=== PATIENT | female | born 1985 | race Caucasian/White ===

== ENCOUNTER 2016-02-07 09:18 | Emergency (ER) | payer OTHER ==
[~2016-02-07] VITALS: Ht 160 cm; Wt 89.0 kg
[~2016-02-07 09:18] MED LIST: ATARAX,VISTARIL50 MG PO; ATIVAN0.5 MG PO; ATIVAN1 MG PO; BACTRIM,SEPT1 TABLET PO; CIPRO500 MG PO; DEPO-PROVER150 MG/ML IM; EFFEXOR37.5 MG PO; ENDOCET 10-3251 EACH PO; EXCEDRIN MIGRA1 EACH PO; FIORICET 50-301 EACH PO; KLONOPIN0.5 M1 PO; LEVAQUIN500 MG PO; LEVOFLOXACIN500 MG; MACROBID100 MG PO; MECLIZINE HCL25 MG PO; MIRALAX255 GM PO; MOTRIN IB200 MG PO; MOTRIN800 MG PO; MUCINEX D ER T1 EACH PO; NAPROSYN500 MG PO; NAPROXEN500 MG PO; NASONEX17 GM BOTH NARES; NOHOMEMEDS; PRENATAL1 EACH PO; ZITHROMAX Z-PA250 MG PO; ZOFRAN ODT4 MG PO; ZOFRAN4 MG PO
[2016-02-07 09:40] VITALS: BP 113/78
== END 2016-02-07 10:55 | disposition left against medical advice (07) ==
LOC: EME 09:18
DX: R05 Cough (principal); Z53.21 Procedure and treatment not carried out due to patient leaving prior to being seen by health care provider
CPT/HCPCS: 71020; 93005

== ENCOUNTER 2016-02-21 18:00 | Emergency (ER) | payer OTHER ==
[~2016-02-21] VITALS: Ht 160 cm; Wt 91.8 kg
[2016-02-21 19:22] LABS: BILIRUBIN NEGATIVE; BLOOD NEGATIVE; COLOR YELLOW ((YELLOW)); GLUCOSE (STRIP) NEGATIVE; KETONES NEGATIVE; LEUKOCYTES NEGATIVE; NITRITE NEGATIVE; PH, URINE 7.5 (5-8); PROTEIN (STRIP) NEGATIVE; SPECIFIC GRAVITY 1.015 (1.000-1.030)
[2016-02-21 19:26] LABS: ADD MIUA? NO
[2016-02-21] MEDS ORDERED: MUCINEX D ER T1 EACH PO (20:01)
[2016-02-21] MEDS ORDERED: FLONASE16 G1 BOTH NARES (20:01)
[2016-02-21] MEDS ORDERED: CLINDAMYCIN HC300 MG PO (20:01)
[2016-02-21 20:07] LABS: POINT-OF-CARE METER ID UU13113800
[2016-02-21 20:32] VITALS: BP 109/82
== END 2016-02-21 20:33 | disposition home or self-care (01) ==
LOC: EME 18:00
PROVIDERS: Physician Assistant
DX: H65.02 Acute serous otitis media, left ear (principal); K02.9 Dental caries, unspecified; F17.200 Nicotine dependence, unspecified, uncomplicated
CPT/HCPCS: 81003; 82948; 99281; 99284

== ENCOUNTER 2016-02-25 10:51 | Emergency (ER) | payer OTHER ==
[~2016-02-25] VITALS: Ht 160 cm; Wt 89.5 kg
[~2016-02-25 10:51] MED LIST changes: +CLINDAMYCIN HC300 MG PO; +FLONASE16 G1 BOTH NARES
[2016-02-25] MEDS ORDERED: DEPO-PROVER400 MG/ML IM (12:53)
[2016-02-25 13:49] LABS: ADD MIUA? NO; BILIRUBIN NEGATIVE; BLOOD NEGATIVE; COLOR YELLOW ((YELLOW)); GLUCOSE (STRIP) NEGATIVE; KETONES 15; LEUKOCYTES NEGATIVE; NITRITE NEGATIVE; PH, URINE 6.5 (5-8); PROTEIN (STRIP) NEGATIVE; SPECIFIC GRAVITY 1.009 (1.000-1.030); UCUL ADDED? NO; UROBILINOGEN 0.2 MG/DL (0.2-1.0)
[2016-02-25 13:55] LABS: HEMATOCRIT 42.8 % (36.0-46.0); MCH 30.1 PG (29.0-34.0); MCHC 34.1 G/DL (30.0-36.0); MCV 88.2 FL (83-99); MEAN PLAT.VOLUME 11.5 uM^3 (9.5-12.4); PLATELET COUNT 244 K/uL (156-360); RBC DIS.WIDTH-CV 14.1 % (11.8-14.6); RED BLOOD COUNT 4.85 M/uL (3.80-5.20); WHITE BLOOD COUNT 11.7 K/uL (4.1-10.2)
[2016-02-25 14:08] LABS: CHLORIDE 104 mEq/L (99-109); POTASSIUM 4.2 mEq/L (3.7-5.4); SODIUM 136 mEq/L (136-147)
[2016-02-25 14:10] LABS: GLUCOSE 93 mg/dL (70-99)
[2016-02-25 14:11] LABS: ANION GAP 11 MEQ/L (2-14)
[2016-02-25 14:14] LABS: GFR ESTIMATE (CALCULATED) > 59 mL/min/; UREA NITROGEN (BUN) 7 mg/dL (9-23)
[2016-02-25 14:24] LABS: QUANTITATIVE HCG < 4.0 MIU/ML
[2016-02-25] MEDS ORDERED: AMOXICILLIN500 M1 PO (15:07)
[2016-02-25 15:15] VITALS: BP 116/78
== END 2016-02-25 15:16 | disposition home or self-care (01) ==
LOC: EME 10:51
PROVIDERS: Physician Assistant
DX: K05.10 Chronic gingivitis, plaque induced (principal); E86.0 Dehydration; Z88.0 Allergy status to penicillin
CPT/HCPCS: 80048; 81003; 84443; 84702; 85027; 99281; 99284

== ENCOUNTER 2016-06-18 06:28 | Emergency (ER) | payer OTHER ==
[~2016-06-18] VITALS: Ht 160 cm; Wt 93.6 kg
[~2016-06-18 06:28] MED LIST changes: +AMOXICILLIN500 M1 PO; +DEPO-PROVER400 MG/ML IM
[2016-06-18 06:30] VITALS: BP 119/80
[2016-06-18] MEDS ORDERED: MOTRIN800 MG PO (06:41)
[2016-06-18] MEDS ORDERED: CLEOCIN300 MG PO (06:41)
[2016-06-18] MEDS ORDERED: BACTRIM,SEPT1 TABLET PO (18:56)
== END 2016-06-18 06:55 | disposition home or self-care (01) ==
LOC: EME 06:28
DX: I88.9 Nonspecific lymphadenitis, unspecified (principal); Z88.0 Allergy status to penicillin
CPT/HCPCS: 99281; 99284

== ENCOUNTER 2016-06-18 16:05 | Emergency (ER) | payer OTHER ==
[~2016-06-18] VITALS: Ht 160 cm; Wt 93.4 kg
[~2016-06-18 16:05] MED LIST changes: +CLEOCIN300 MG PO
[2016-06-18 17:04] LABS: HEMATOCRIT 42.5 % (36.0-46.0); MCH 29.3 PG (29.0-34.0); MCHC 33.2 G/DL (30.0-36.0); MCV 88.4 FL (83-99); MEAN PLAT.VOLUME 10.8 uM^3 (9.5-12.4); PLATELET COUNT 250 K/uL (156-360); RBC DIS.WIDTH-CV 13.2 % (11.8-14.6); RBC DIS.WIDTH-SD 43.4 % (39-53); RED BLOOD COUNT 4.81 M/uL (3.80-5.20); WHITE BLOOD COUNT 15.4 K/uL (4.1-10.2)
[2016-06-18 17:14] LABS: CHLORIDE 109 mEq/L (99-109)
[2016-06-18 17:15] LABS: POTASSIUM 4.1 mEq/L (3.7-5.4); SODIUM 140 mEq/L (136-147)
[2016-06-18 17:17] LABS: GLUCOSE 95 mg/dL (70-99)
[2016-06-18 17:18] LABS: ANION GAP 10 MEQ/L (2-14)
[2016-06-18 17:19] LABS: TOTAL BILIRUBIN 0.3 mg/dL (0.0-1.0)
[2016-06-18 17:20] LABS: ALKALINE PHOSPHATASE 94 IU/L (3-129); GFR ESTIMATE (CALCULATED) > 59 mL/min/
[2016-06-18 17:22] LABS: UREA NITROGEN (BUN) 11 mg/dL (9-23)
[2016-06-18 17:26] LABS: ADD MIUA? NO; BILIRUBIN NEGATIVE; BLOOD NEGATIVE; COLOR STRAW ((YELLOW)); GLUCOSE (STRIP) NEGATIVE; KETONES NEGATIVE; LEUKOCYTES NEGATIVE; NITRITE NEGATIVE; PROTEIN (STRIP) NEGATIVE; SPECIFIC GRAVITY 1.006 (1.000-1.030); UCUL ADDED? NO; UROBILINOGEN 0.2 MG/DL (0.2-1.0)
[2016-06-18 17:31] LABS: QUANTITATIVE HCG < 4.0 MIU/ML
[2016-06-18] MEDS ORDERED: BACTRIM,SEPT1 TABLET PO (18:56)
[2016-06-18 19:06] VITALS: BP 123/90
== END 2016-06-18 19:10 | disposition home or self-care (01) ==
LOC: EME 16:05 → RME 16:05
DX: R10.31 Right lower quadrant pain (principal); R59.1 Generalized enlarged lymph nodes; D72.829 Elevated white blood cell count, unspecified
CPT/HCPCS: 80053; 81003; 84702; 85027; 99281; 99284; J7040

== ENCOUNTER 2016-07-07 16:14 | Emergency (ER) | payer OTHER ==
[~2016-07-07] VITALS: Ht 160 cm; Wt 93.1 kg
[2016-07-07] MEDS ORDERED: AUGMENTIN875 MG PO (17:27)
[2016-07-07] MEDS ORDERED: MOTRIN600 MG PO (17:28)
[2016-07-07 17:37] VITALS: BP 125/89
== END 2016-07-07 17:39 | disposition home or self-care (01) ==
LOC: EME 16:14
DX: R51 Headache (principal); L03.316 Cellulitis of umbilicus; K08.499 Partial loss of teeth due to other specified cause, unspecified class; F17.200 Nicotine dependence, unspecified, uncomplicated; Z88.0 Allergy status to penicillin
CPT/HCPCS: 99281; 99283

== ENCOUNTER 2016-09-29 16:24 | Emergency (ER) | payer OTHER ==
[~2016-09-29] VITALS: Ht 160 cm; Wt 94.3 kg
[~2016-09-29 16:24] MED LIST changes: +AUGMENTIN875 MG PO; +MOTRIN600 MG PO
[2016-09-29 18:10] LABS: HEMATOCRIT 41.5 % (36.0-46.0); MCH 29.7 PG (29.0-34.0); MCV 87.4 FL (83-99); MEAN PLAT.VOLUME 10.5 uM^3 (9.5-12.4); PLATELET COUNT 243 K/uL (156-360); RBC DIS.WIDTH-CV 13.2 % (11.8-14.6); RBC DIS.WIDTH-SD 42.3 % (39-53); RED BLOOD COUNT 4.75 M/uL (3.80-5.20); WHITE BLOOD COUNT 15.4 K/uL (4.1-10.2)
[2016-09-29 18:19] LABS: CHLORIDE 107 mEq/L (99-109); POTASSIUM 4.3 mEq/L (3.7-5.4); SODIUM 139 mEq/L (136-147)
[2016-09-29 18:21] LABS: GLUCOSE 93 mg/dL (70-99)
[2016-09-29 18:22] LABS: ANION GAP 10 MEQ/L (2-14)
[2016-09-29 18:25] LABS: GFR ESTIMATE (CALCULATED) > 59 mL/min/
[2016-09-29 18:26] LABS: UREA NITROGEN (BUN) 9 mg/dL (9-23)
[2016-09-29 18:33] LABS: TROP-I INTERPRETATION NEGATIVE; TROPONIN-I < 0.01 ng/mL (0.0-0.30)
[2016-09-29 19:02] VITALS: BP 135/84
== END 2016-09-29 19:14 | disposition home or self-care (01) ==
LOC: EME 16:24
PROVIDERS: Emergency Medicine
DX: R07.9 Chest pain, unspecified (principal); R00.0 Tachycardia, unspecified; F17.200 Nicotine dependence, unspecified, uncomplicated
CPT/HCPCS: 71020; 80048; 84484; 85027; 93005; 99281; 99284

== ENCOUNTER 2016-10-13 14:29 | Emergency (ER) | payer OTHER ==
[~2016-10-13] VITALS: Ht 160 cm; Wt 92.0 kg
[2016-10-13 14:51] VITALS: BP 115/84
[2016-10-13] MEDS ORDERED: INDOCIN50 MG PO (17:11)
[2016-10-13] MEDS ORDERED: NORCO 7.5/321 TABLET PO (17:11)
== END 2016-10-13 18:15 | disposition home or self-care (01) ==
LOC: EME 14:29
PROC: 2W3RX1Z Immobilization of Left Lower Leg using Splint (ICD-10-PCS; principal; 2016-10-13)
DX: S82.62XA Displaced fracture of lateral malleolus of left fibula, initial encounter for closed fracture (principal); S82.832A Other fracture of upper and lower end of left fibula, initial encounter for closed fracture; X50.1XXA Overexertion from prolonged static or awkward postures, initial encounter; W18.42XA Slipping, tripping and stumbling without falling due to stepping into hole or opening, initial encounter; Y92.007 Garden or yard of unspecified non-institutional (private) residence as the place of occurrence of the external cause; F17.200 Nicotine dependence, unspecified, uncomplicated
CPT/HCPCS: 73610; 99281; 99284

== ENCOUNTER 2016-10-20 20:42 | Emergency (ER) | payer OTHER ==
[~2016-10-20] VITALS: Ht 162.6 cm; Wt 94.9 kg
[~2016-10-20 20:42] MED LIST changes: +INDOCIN50 MG PO; +NORCO 7.5/321 TABLET PO
[2016-10-20 22:25] VITALS: BP 129/87
== END 2016-10-20 22:26 | disposition home or self-care (01) ==
LOC: EME 20:42
DX: R20.2 Paresthesia of skin (principal); S82.402D Unspecified fracture of shaft of left fibula, subsequent encounter for closed fracture with routine healing; X58.XXXD Exposure to other specified factors, subsequent encounter; M79.89 Other specified soft tissue disorders; F17.200 Nicotine dependence, unspecified, uncomplicated
CPT/HCPCS: 99281; 99283

== ENCOUNTER 2016-11-09 08:31 | Emergency (ER) | payer OTHER ==
[~2016-11-09] VITALS: Ht 160 cm; Wt 94.9 kg
[2016-11-09 08:36] VITALS: BP 140/87
== END 2016-11-09 10:11 | disposition left against medical advice (07) ==
LOC: EME 08:31
DX: R07.9 Chest pain, unspecified (principal); M54.9 Dorsalgia, unspecified; R05 Cough; F17.200 Nicotine dependence, unspecified, uncomplicated; Z53.20 Procedure and treatment not carried out because of patient's decision for unspecified reasons
CPT/HCPCS: 93005

== ENCOUNTER 2016-12-21 08:56 | Emergency (ER) | payer OTHER ==
[~2016-12-21] VITALS: Ht 160 cm; Wt 95.7 kg
[2016-12-21 10:09] LABS: EOSINOPHIL COUNT 0.2 K/uL (0-0.3); HEMATOCRIT 42.9 % (36.0-46.0); IMMATURE GRANULOCYTE (%) 0.4 % (0.0-0.7); INSTRUMENT ABS NEUTROPHIL CT 5.5 K/uL; LYMPHOCYTE COUNT 1.9 K/uL (1.0-2.8); MCH 29.5 PG (29.0-34.0); MCHC 33.3 G/DL (30.0-36.0); MCV 88.6 FL (83-99); MEAN PLAT.VOLUME 11.1 uM^3 (9.5-12.4); MONOCYTE (%) 6.1 % (3-12); MONOCYTE COUNT 0.5 K/uL (0-0.8); NEUTROPHIL (%) 67.4 % (45-76); NEUTROPHIL COUNT 5.5 K/uL (1.8-6.4); PLATELET COUNT 248 K/uL (156-360); RBC DIS.WIDTH-CV 13.6 % (11.8-14.6); RBC DIS.WIDTH-SD 44.5 % (39-53); RED BLOOD COUNT 4.84 M/uL (3.80-5.20); WHITE BLOOD COUNT 8.2 K/uL (4.1-10.2)
[2016-12-21 10:22] LABS: CHLORIDE 106 mEq/L (99-109); POTASSIUM 4.3 mEq/L (3.7-5.4); SODIUM 137 mEq/L (136-147)
[2016-12-21 10:23] LABS: GLUCOSE 91 mg/dL (70-99)
[2016-12-21 10:25] LABS: ANION GAP 7 MEQ/L (2-14)
[2016-12-21 10:27] LABS: GFR ESTIMATE (CALCULATED) > 59 mL/min/
[2016-12-21 10:28] LABS: UREA NITROGEN (BUN) 8 mg/dL (9-23)
[2016-12-21 11:24] VITALS: BP 120/77
== END 2016-12-21 11:20 | disposition home or self-care (01) ==
LOC: EME 08:56
PROVIDERS: Emergency Medicine
DX: R51 Headache (principal); R42 Dizziness and giddiness; H53.9 Unspecified visual disturbance; F17.200 Nicotine dependence, unspecified, uncomplicated
CPT/HCPCS: 70450; 70486; 80048; 85025; 99281; 99285

== ENCOUNTER 2017-01-18 06:27 | Emergency (ER) | payer OTHER ==
[~2017-01-18] VITALS: Ht 160 cm; Wt 95.2 kg
[2017-01-18 07:03] LABS: EOSINOPHIL (%) 3.1 % (0-5); EOSINOPHIL COUNT 0.2 K/uL (0-0.3); HEMATOCRIT 42.8 % (36.0-46.0); IMMATURE GRANULOCYTE (%) 0.1 % (0.0-0.7); INSTRUMENT ABS NEUTROPHIL CT 4.3 K/uL; LYMPHOCYTE COUNT 2.4 K/uL (1.0-2.8); MCH 29.2 PG (29.0-34.0); MCHC 33.4 G/DL (30.0-36.0); MCV 87.5 FL (83-99); MEAN PLAT.VOLUME 10.7 uM^3 (9.5-12.4); MONOCYTE (%) 5.7 % (3-12); MONOCYTE COUNT 0.4 K/uL (0-0.8); NEUTROPHIL (%) 57.8 % (45-76); NEUTROPHIL COUNT 4.3 K/uL (1.8-6.4); PLATELET COUNT 243 K/uL (156-360); RBC DIS.WIDTH-CV 13.3 % (11.8-14.6); RBC DIS.WIDTH-SD 42.9 % (39-53); RED BLOOD COUNT 4.89 M/uL (3.80-5.20); WHITE BLOOD COUNT 7.4 K/uL (4.1-10.2)
[2017-01-18 07:44] LABS: ANION GAP 6 MEQ/L (2-14); CHLORIDE 107 MEQ/L (99-109); GFR ESTIMATE (CALCULATED) > 59 mL/min/; GLUCOSE 90 mg/dL (70-99); POTASSIUM 3.9 MEQ/L (3.7-5.4); SAMPLE HEMOLYSIS CHECK 0; SAMPLE ICTERIC CHECK 0; SAMPLE LIPEMIA CHECK 0; SODIUM 137 MEQ/L (136-147); UREA NITROGEN (BUN) 8 mg/dL (9-23)
[2017-01-18 08:17] LABS: QUANTITATIVE HCG < 4.0 MIU/ML
[2017-01-18] MEDS ORDERED: ANTIVERT25 MG PO (09:22)
[2017-01-18 09:34] VITALS: BP 119/72
== END 2017-01-18 09:35 | disposition home or self-care (01) ==
LOC: EME 06:27
PROVIDERS: Emergency Medicine
DX: R42 Dizziness and giddiness (principal); F17.200 Nicotine dependence, unspecified, uncomplicated; Z88.0 Allergy status to penicillin; Z87.19 Personal history of other diseases of the digestive system
CPT/HCPCS: 70450; 80048; 84702; 85025; 93005; 99281; 99285

== ENCOUNTER 2017-01-29 08:17 | Emergency (ER) | payer OTHER ==
[~2017-01-29] VITALS: Ht 160 cm; Wt 94.4 kg
[~2017-01-29 08:17] MED LIST changes: +ANTIVERT25 MG PO
[2017-01-29 08:26] VITALS: BP 120/80
[2017-01-29 09:19] LABS: APPEARANCE CLOUDY ((CLEAR)); BILIRUBIN NEGATIVE; BLOOD NEGATIVE; COLOR YELLOW ((YELLOW)); GLUCOSE (STRIP) NEGATIVE; KETONES NEGATIVE; LEUKOCYTES NEGATIVE; NITRITE NEGATIVE; PROTEIN (STRIP) NEGATIVE; SPECIFIC GRAVITY 1.024 (1.000-1.030)
[2017-01-29 09:32] LABS: BACTERIA 1+ /HPF; EPITHELIAL CELLS 3+ /HPF; MUCUS 1+ /LPF; RED BLOOD CELLS 0-5 /HPF (0-5); UCUL ADDED? NO; WHITE BLOOD CELLS 0-5 /HPF (0-5)
[2017-01-29] MEDS ORDERED: MOTRIN800 MG PO (09:48)
[2017-01-29] MEDS ORDERED: FLEXERIL10 MG PO (09:48)
[2017-01-29] MEDS ORDERED: LIDODERM 5% P1 PATCH TD (09:48)
== END 2017-01-29 10:10 | disposition home or self-care (01) ==
LOC: EME 08:17
PROVIDERS: Nurse Practitioner Family
DX: S39.012A Strain of muscle, fascia and tendon of lower back, initial encounter (principal); M62.838 Other muscle spasm; M54.6 Pain in thoracic spine; X58.XXXA Exposure to other specified factors, initial encounter; F17.200 Nicotine dependence, unspecified, uncomplicated; Z88.0 Allergy status to penicillin
CPT/HCPCS: 72070; 72100; 81003; 99281; 99284

== ENCOUNTER 2017-01-30 17:28 | Emergency (ER) | payer OTHER ==
[~2017-01-30] VITALS: Ht 160 cm; Wt 94.9 kg
[~2017-01-30 17:28] MED LIST changes: +FLEXERIL10 MG PO; +LIDODERM 5% P1 PATCH TD
[2017-01-30 17:38] VITALS: BP 112/82
[2017-01-30 18:41] LABS: APPEARANCE SL.HAZY ((CLEAR)); BILIRUBIN NEGATIVE; BLOOD NEGATIVE; COLOR YELLOW ((YELLOW)); GLUCOSE (STRIP) NEGATIVE; KETONES NEGATIVE; LEUKOCYTES NEGATIVE; NITRITE NEGATIVE; PROTEIN (STRIP) NEGATIVE; SPECIFIC GRAVITY 1.018 (1.000-1.030)
[2017-01-30 18:44] LABS: BACTERIA RARE /HPF; EPITHELIAL CELLS 1+ /HPF; MUCUS TRACE /LPF; RED BLOOD CELLS 0-5 /HPF (0-5); WHITE BLOOD CELLS 0-5 /HPF (0-5)
== END 2017-01-30 19:39 | disposition left against medical advice (07) ==
LOC: EME 17:28
PROVIDERS: Nurse Practitioner Family
DX: M54.5 Low back pain (principal); R00.0 Tachycardia, unspecified; F17.200 Nicotine dependence, unspecified, uncomplicated; Z88.0 Allergy status to penicillin
CPT/HCPCS: 80048; 81003; 84702; 85027; 99281; 99284

== ENCOUNTER 2017-02-01 03:42 | Emergency (ER) | payer OTHER ==
[~2017-02-01] VITALS: Ht 160 cm; Wt 94.7 kg
[2017-02-01 04:50] LABS: APPEARANCE CLOUDY ((CLEAR)); BILIRUBIN NEGATIVE; BLOOD MODERATE; COLOR YELLOW ((YELLOW)); GLUCOSE (STRIP) NEGATIVE; KETONES NEGATIVE; LEUKOCYTES NEGATIVE; NITRITE NEGATIVE; PROTEIN (STRIP) NEGATIVE; SPECIFIC GRAVITY 1.028 (1.000-1.030)
[2017-02-01 05:15] LABS: EPITHELIAL CELLS 3+ /HPF; WHITE BLOOD CELLS NONE SEEN /HPF (0-5)
[2017-02-01 05:16] LABS: BACTERIA 2+ /HPF; MUCUS 2+ /LPF; UCUL ADDED? YES
[2017-02-01 06:23] VITALS: BP 104/69
== END 2017-02-01 06:23 | disposition home or self-care (01) ==
LOC: EME 03:42
PROVIDERS: Emergency Medicine
DX: M62.830 Muscle spasm of back (principal); F17.200 Nicotine dependence, unspecified, uncomplicated; Z87.19 Personal history of other diseases of the digestive system; Z88.0 Allergy status to penicillin
CPT/HCPCS: 74176; 81003; 87086; 93005; 99281; 99284

== ENCOUNTER → 2017-02-16 18:21 | Emergency (ER) | payer OTHER | END | disposition left against medical advice (07) | LOC: EME 18:21 | DX: R07.9 Chest pain, unspecified (principal); Z53.21 Procedure and treatment not carried out due to patient leaving prior to being seen by health care provider | CPT/HCPCS: 93005 ==

== ENCOUNTER 2017-03-07 19:55 | Emergency (ER) | payer OTHER ==
[~2017-03-07] VITALS: Ht 160 cm; Wt 95.1 kg
[2017-03-07 20:23] LABS: HEMATOCRIT 40.4 % (36.0-46.0); HEMOGLOBIN 13.8 G/DL (11.9-15.5); MCHC 34.2 G/DL (30.0-36.0); MCV 87.8 FL (83-99); PLATELET COUNT 249 K/uL (156-360); WHITE BLOOD COUNT 12.3 K/uL (4.1-10.2)
[2017-03-07 20:33] LABS: ALBUMIN 3.8 g/dL (3.2-4.8); CHLORIDE 107 mEq/L (99-109); POTASSIUM 4.1 mEq/L (3.7-5.4); SODIUM 137 mEq/L (136-147)
[2017-03-07 20:36] LABS: GLUCOSE 103 mg/dL (70-99); TOTAL PROTEIN 7.6 g/dL (6.4-8.3)
[2017-03-07 20:38] LABS: TOTAL BILIRUBIN 0.2 mg/dL (0.0-1.0)
[2017-03-07 20:39] LABS: ALKALINE PHOSPHATASE 103 IU/L (3-129); CREATININE 0.8 mg/dL (0.6-1.3); GFR ESTIMATE (CALCULATED) > 59 mL/min/
[2017-03-07 20:40] LABS: UREA NITROGEN (BUN) 8 mg/dL (9-23)
[2017-03-07 20:41] LABS: AST (GOT) 15 IU/L (2-34)
[2017-03-07 20:42] LABS: ALT (GPT) 17 IU/L (3-49)
[2017-03-07 20:43] LABS: LIPASE 28 U/L (1.0-51.0)
[2017-03-07 20:44] LABS: APPEARANCE SL.HAZY ((CLEAR)); BILIRUBIN NEGATIVE; BLOOD LARGE; COLOR YELLOW ((YELLOW)); GLUCOSE (STRIP) NEGATIVE; KETONES NEGATIVE; LEUKOCYTES NEGATIVE; NITRITE NEGATIVE; PROTEIN (STRIP) NEGATIVE; SPECIFIC GRAVITY 1.021 (1.000-1.030); UROBILINOGEN 0.2 MG/DL (0.2-1.0)
[2017-03-07 20:49] LABS: QUANTITATIVE HCG < 4.0 MIU/ML
[2017-03-07 20:58] LABS: BACTERIA RARE /HPF; EPITHELIAL CELLS 2+ /HPF; MUCUS 2+ /LPF; RED BLOOD CELLS 0-5 /HPF (0-5); UCUL ADDED? NO; WHITE BLOOD CELLS 0-5 /HPF (0-5)
[2017-03-07] MEDS ORDERED: NAPROXEN500 MG PO (21:13)
[2017-03-07 21:38] VITALS: BP 137/82
[2017-03-08] MEDS ORDERED: PROTONIX40 MG PO (10:33)
== END 2017-03-07 21:39 | disposition home or self-care (01) ==
LOC: EME 19:55
PROVIDERS: Physician Assistant
DX: R07.89 Other chest pain (principal); R22.2 Localized swelling, mass and lump, trunk; F17.200 Nicotine dependence, unspecified, uncomplicated
CPT/HCPCS: 71046; 80053; 81003; 83690; 84702; 85027; 99281; 99284

== ENCOUNTER 2017-03-08 08:51 | Emergency (ER) | payer OTHER ==
[~2017-03-08] VITALS: Ht 160 cm; Wt 94.7 kg
[2017-03-08 08:55] VITALS: BP 138/91
[2017-03-08 09:37] LABS: BASOPHIL (%) 0.5 % (0-1); EOSINOPHIL (%) 1.8 % (0-5); EOSINOPHIL COUNT 0.2 K/uL (0-0.3); HEMATOCRIT 42.7 % (36.0-46.0); HEMOGLOBIN 14.5 G/DL (11.9-15.5); IMMATURE GRANULOCYTE (%) 0.2 % (0.0-0.7); LYMPHOCYTE (%) 27.3 % (15-42); LYMPHOCYTE COUNT 2.2 K/uL (1.0-2.8); MCV 88.4 FL (83-99); MONOCYTE (%) 6.3 % (3-12); MONOCYTE COUNT 0.5 K/uL (0-0.8); NEUTROPHIL (%) 63.9 % (45-76); NEUTROPHIL COUNT 5.2 K/uL (1.8-6.4); PLATELET COUNT 250 K/uL (156-360); RBC DIS.WIDTH-CV 13.9 % (11.8-14.6); RBC DIS.WIDTH-SD 44.8 % (39-53); RED BLOOD COUNT 4.83 M/uL (3.80-5.20); WHITE BLOOD COUNT 8.2 K/uL (4.1-10.2)
[2017-03-08 09:45] LABS: INTER. NORMALIZED RATIO 1.1
[2017-03-08 09:49] LABS: CHLORIDE 107 mEq/L (99-109); POTASSIUM 3.9 mEq/L (3.7-5.4); SODIUM 137 mEq/L (136-147)
[2017-03-08 09:50] LABS: GLUCOSE 92 mg/dL (70-99)
[2017-03-08 09:54] LABS: CREATININE 0.7 mg/dL (0.6-1.3); GFR ESTIMATE (CALCULATED) > 59 mL/min/
[2017-03-08 09:55] LABS: UREA NITROGEN (BUN) 7 mg/dL (9-23)
[2017-03-08] MEDS ORDERED: PROTONIX40 MG PO (10:33)
== END 2017-03-08 11:20 | disposition home or self-care (01) ==
LOC: EME 08:51
PROVIDERS: Emergency Medicine
DX: R10.11 Right upper quadrant pain (principal); K62.5 Hemorrhage of anus and rectum; F17.200 Nicotine dependence, unspecified, uncomplicated; Z87.19 Personal history of other diseases of the digestive system; Z88.0 Allergy status to penicillin; Z88.8 Allergy status to other drugs, medicaments and biological substances
CPT/HCPCS: 80048; 85025; 85610; 99281; 99284

== ENCOUNTER 2017-03-11 19:35 | Emergency (ER) | payer OTHER ==
[~2017-03-11] VITALS: Ht 160 cm; Wt 94.5 kg
[~2017-03-11 19:35] MED LIST changes: +PROTONIX40 MG PO
[2017-03-11 20:14] LABS: APPEARANCE SL.HAZY ((CLEAR)); BILIRUBIN NEGATIVE; BLOOD LARGE; COLOR YELLOW ((YELLOW)); GLUCOSE (STRIP) NEGATIVE; KETONES NEGATIVE; LEUKOCYTES NEGATIVE; NITRITE NEGATIVE; PROTEIN (STRIP) 30; SPECIFIC GRAVITY 1.025 (1.000-1.030)
[2017-03-11 20:19] LABS: BACTERIA RARE /HPF; EPITHELIAL CELLS 1+ /HPF; MUCUS 1+ /LPF; RED BLOOD CELLS TNTC /HPF (0-5); WHITE BLOOD CELLS 0-5 /HPF (0-5)
[2017-03-11 20:23] LABS: BASOPHIL (%) 0.3 % (0-1); EOSINOPHIL COUNT 0.2 K/uL (0-0.3); HEMATOCRIT 40.7 % (36.0-46.0); HEMOGLOBIN 13.9 G/DL (11.9-15.5); IMMATURE GRANULOCYTE (%) 0.3 % (0.0-0.7); LYMPHOCYTE (%) 26.1 % (15-42); MCH 30.2 PG (29.0-34.0); MCHC 34.2 G/DL (30.0-36.0); MCV 88.3 FL (83-99); MONOCYTE (%) 5.4 % (3-12); MONOCYTE COUNT 0.6 K/uL (0-0.8); NEUTROPHIL (%) 65.9 % (45-76); NEUTROPHIL COUNT 7.6 K/uL (1.8-6.4); PLATELET COUNT 242 K/uL (156-360); RBC DIS.WIDTH-CV 13.8 % (11.8-14.6); RBC DIS.WIDTH-SD 44.7 % (39-53); RED BLOOD COUNT 4.61 M/uL (3.80-5.20); WHITE BLOOD COUNT 11.6 K/uL (4.1-10.2)
[2017-03-11 20:32] LABS: ALBUMIN 4.1 g/dL (3.2-4.8); CHLORIDE 106 mEq/L (99-109); POTASSIUM 4.2 mEq/L (3.7-5.4); SODIUM 139 mEq/L (136-147)
[2017-03-11 20:35] LABS: GLUCOSE 97 mg/dL (70-99)
[2017-03-11 20:37] LABS: TOTAL BILIRUBIN 0.2 mg/dL (0.0-1.0)
[2017-03-11 20:38] LABS: ALKALINE PHOSPHATASE 110 IU/L (3-129)
[2017-03-11 20:39] LABS: CREATININE 0.7 mg/dL (0.6-1.3); GFR ESTIMATE (CALCULATED) > 59 mL/min/
[2017-03-11 20:40] LABS: AST (GOT) 17 IU/L (2-34); DIRECT BILIRUBIN 0.1 mg/dL (0.0-0.3); UREA NITROGEN (BUN) 10 mg/dL (9-23)
[2017-03-11 20:41] LABS: ALT (GPT) 18 IU/L (3-49)
[2017-03-11 20:42] LABS: LIPASE 27 U/L (1.0-51.0)
[2017-03-11 20:47] LABS: QUANTITATIVE HCG < 4.0 MIU/ML
[2017-03-11] MEDS ORDERED: ZOFRAN ODT8 MG PO (22:00)
[2017-03-11] MEDS ORDERED: BENTYL20 MG PO (22:00)
[2017-03-11 22:39] VITALS: BP 118/65
== END 2017-03-11 22:42 | disposition home or self-care (01) ==
LOC: EME 19:35
PROVIDERS: Physician Assistant
DX: K27.9 Peptic ulcer, site unspecified, unspecified as acute or chronic, without hemorrhage or perforation (principal); R10.10 Upper abdominal pain, unspecified; R11.0 Nausea; Z87.19 Personal history of other diseases of the digestive system; Z88.0 Allergy status to penicillin; F17.200 Nicotine dependence, unspecified, uncomplicated; Z91.19 Patient's noncompliance with other medical treatment and regimen; Z91.14 Patient's other noncompliance with medication regimen
CPT/HCPCS: 76705; 80048; 80076; 81003; 83690; 84702; 85025; 99281; 99284

== ENCOUNTER 2017-03-19 07:04 | Emergency (ER) | payer OTHER ==
[~2017-03-19] VITALS: Ht 160 cm; Wt 93.2 kg
[~2017-03-19 07:04] MED LIST changes: +BENTYL20 MG PO; +ZOFRAN ODT8 MG PO
[2017-03-19 07:40] LABS: HEMATOCRIT 42.7 % (36.0-46.0); HEMOGLOBIN 14.4 G/DL (11.9-15.5); MCH 29.8 PG (29.0-34.0); MCHC 33.7 G/DL (30.0-36.0); MCV 88.2 FL (83-99); RBC DIS.WIDTH-CV 13.8 % (11.8-14.6); RBC DIS.WIDTH-SD 44.8 % (39-53); RED BLOOD COUNT 4.84 M/uL (3.80-5.20); WHITE BLOOD COUNT 7.9 K/uL (4.1-10.2)
[2017-03-19 07:52] LABS: CHLORIDE 104 mEq/L (99-109); POTASSIUM 3.9 mEq/L (3.7-5.4); SODIUM 136 mEq/L (136-147)
[2017-03-19 07:54] LABS: GLUCOSE 90 mg/dL (70-99)
[2017-03-19 07:58] LABS: CREATININE 0.7 mg/dL (0.6-1.3); GFR ESTIMATE (CALCULATED) > 59 mL/min/
[2017-03-19 07:59] LABS: UREA NITROGEN (BUN) 8 mg/dL (9-23)
[2017-03-19 08:17] LABS: PLAT.SUFFICIENCY ADEQUATE; PLATELET COUNT 208 K/uL (156-360)
[2017-03-19 08:30] LABS: APPEARANCE SL.HAZY ((CLEAR)); BILIRUBIN NEGATIVE; BLOOD SMALL; COLOR YELLOW ((YELLOW)); GLUCOSE (STRIP) NEGATIVE; KETONES NEGATIVE; LEUKOCYTES SMALL; NITRITE NEGATIVE; PROTEIN (STRIP) NEGATIVE; SPECIFIC GRAVITY 1.005 (1.000-1.030); UROBILINOGEN 0.2 MG/DL (0.2-1.0)
[2017-03-19 08:41] LABS: BACTERIA 3+ /HPF; CALCIUM OXALATE CRYSTALS 1+ /HPF; EPITHELIAL CELLS 3+ /HPF; MUCUS TRACE /LPF; RED BLOOD CELLS 0-5 /HPF (0-5); UCUL ADDED? YES; WHITE BLOOD CELLS 0-5 /HPF (0-5)
[2017-03-19 09:30] VITALS: BP 116/66
== END 2017-03-19 09:42 | disposition home or self-care (01) ==
LOC: EME 07:04
PROVIDERS: Emergency Medicine
DX: R42 Dizziness and giddiness (principal); F17.200 Nicotine dependence, unspecified, uncomplicated; Z87.19 Personal history of other diseases of the digestive system; Z88.0 Allergy status to penicillin; Z88.8 Allergy status to other drugs, medicaments and biological substances
CPT/HCPCS: 80048; 81003; 84702 90; 85027; 87086; 99281; 99285; J7030

== ENCOUNTER 2017-04-08 20:02 | Emergency (ER) | payer OTHER ==
[~2017-04-08] VITALS: Ht 160 cm; Wt 93.8 kg
[2017-04-08 21:05] LABS: HEMOGLOBIN 13.5 G/DL (11.9-15.5); MCH 29.8 PG (29.0-34.0); MCHC 33.8 G/DL (30.0-36.0); MCV 88.3 FL (83-99); PLATELET COUNT 233 K/uL (156-360); RBC DIS.WIDTH-CV 14.1 % (11.8-14.6); RBC DIS.WIDTH-SD 45.3 % (39-53); RED BLOOD COUNT 4.53 M/uL (3.80-5.20); WHITE BLOOD COUNT 13.3 K/uL (4.1-10.2)
[2017-04-08 21:15] LABS: ALBUMIN 3.9 g/dL (3.2-4.8)
[2017-04-08 21:16] LABS: CHLORIDE 105 mEq/L (99-109); SODIUM 137 mEq/L (136-147)
[2017-04-08 21:18] LABS: GLUCOSE 100 mg/dL (70-99); TOTAL PROTEIN 7.6 g/dL (6.4-8.3)
[2017-04-08 21:20] LABS: TOTAL BILIRUBIN 0.2 mg/dL (0.0-1.0)
[2017-04-08 21:21] LABS: ALKALINE PHOSPHATASE 96 IU/L (3-129)
[2017-04-08 21:22] LABS: CREATININE 0.8 mg/dL (0.6-1.3); GFR ESTIMATE (CALCULATED) > 59 mL/min/
[2017-04-08 21:23] LABS: AST (GOT) 16 IU/L (2-34); UREA NITROGEN (BUN) 11 mg/dL (9-23)
[2017-04-08 21:25] LABS: ALT (GPT) 15 IU/L (3-49); LIPASE 31 U/L (1.0-51.0)
[2017-04-08 21:33] LABS: QUANTITATIVE HCG < 4.0 MIU/ML
[2017-04-08 21:50] LABS: TROP-I INTERPRETATION NEGATIVE; TROPONIN-I < 0.01 ng/mL (0.0-0.30)
[2017-04-08 21:57] VITALS: BP 124/77
== END 2017-04-08 21:58 | disposition home or self-care (01) ==
LOC: EME 20:02
PROVIDERS: Nurse Practitioner Family
DX: K21.9 Gastro-esophageal reflux disease without esophagitis (principal); F17.200 Nicotine dependence, unspecified, uncomplicated; Z87.19 Personal history of other diseases of the digestive system; Z88.0 Allergy status to penicillin; Z88.8 Allergy status to other drugs, medicaments and biological substances
CPT/HCPCS: 71046; 80053; 83690; 84484; 84702; 85027; 93005; 99281; 99284

== ENCOUNTER 2017-04-13 09:13 | Emergency (ER) | payer OTHER ==
[~2017-04-13] VITALS: Ht 160 cm; Wt 93.0 kg
[2017-04-13 09:52] LABS: APPEARANCE CLEAR ((CLEAR)); BILIRUBIN NEGATIVE; BLOOD LARGE; COLOR YELLOW ((YELLOW)); GLUCOSE (STRIP) NEGATIVE; KETONES NEGATIVE; LEUKOCYTES NEGATIVE; NITRITE NEGATIVE; PROTEIN (STRIP) NEGATIVE; SPECIFIC GRAVITY 1.023 (1.000-1.030)
[2017-04-13 09:59] LABS: BACTERIA 1+ /HPF; EPITHELIAL CELLS 1+ /HPF; MUCUS 1+ /LPF; RED BLOOD CELLS 15-20 /HPF (0-5); UCUL ADDED? NO; WHITE BLOOD CELLS 0-5 /HPF (0-5)
[2017-04-13 10:12] LABS: HEMATOCRIT 39.8 % (36.0-46.0); HEMOGLOBIN 13.5 G/DL (11.9-15.5); MCHC 33.9 G/DL (30.0-36.0); MCV 88.4 FL (83-99); PLATELET COUNT 217 K/uL (156-360); RBC DIS.WIDTH-SD 45.3 % (39-53); WHITE BLOOD COUNT 7.5 K/uL (4.1-10.2)
[2017-04-13 10:22] LABS: ALBUMIN 3.8 g/dL (3.2-4.8); CHLORIDE 106 mEq/L (99-109); POTASSIUM 4.1 mEq/L (3.7-5.4); SODIUM 138 mEq/L (136-147)
[2017-04-13 10:24] LABS: GLUCOSE 95 mg/dL (70-99)
[2017-04-13 10:25] LABS: TOTAL PROTEIN 7.7 g/dL (6.4-8.3)
[2017-04-13 10:27] LABS: TOTAL BILIRUBIN 0.4 mg/dL (0.0-1.0)
[2017-04-13 10:28] LABS: ALKALINE PHOSPHATASE 105 IU/L (3-129); CREATININE 0.7 mg/dL (0.6-1.3); GFR ESTIMATE (CALCULATED) > 59 mL/min/
[2017-04-13 10:29] LABS: UREA NITROGEN (BUN) 9 mg/dL (9-23)
[2017-04-13 10:30] LABS: AST (GOT) 15 IU/L (2-34)
[2017-04-13 10:31] LABS: ALT (GPT) 14 IU/L (3-49); LIPASE 19 U/L (1.0-51.0)
[2017-04-13 10:37] LABS: QUANTITATIVE HCG < 4.0 MIU/ML
[2017-04-13] MEDS ORDERED: CITRATE OF MAG296 ML PO (11:33)
[2017-04-13] MEDS ORDERED: MIRALAX119 GM PO (11:34)
[2017-04-13 11:59] VITALS: BP 125/78
== END 2017-04-13 12:00 | disposition home or self-care (01) ==
LOC: EME 09:13
PROVIDERS: Emergency Medicine
DX: K59.00 Constipation, unspecified (principal); F17.200 Nicotine dependence, unspecified, uncomplicated; Z87.19 Personal history of other diseases of the digestive system; Z98.890 Other specified postprocedural states; Z88.0 Allergy status to penicillin; Z88.8 Allergy status to other drugs, medicaments and biological substances
CPT/HCPCS: 74176; 80053; 81003; 83690; 84702; 85027; 93005; 99281; 99284; J7040

== ENCOUNTER 2017-04-22 07:49 | Emergency (ER) | payer OTHER ==
[~2017-04-22] VITALS: Ht 160 cm; Wt 92.9 kg
[~2017-04-22 07:49] MED LIST changes: +CITRATE OF MAG296 ML PO; +MIRALAX119 GM PO
[2017-04-22] MEDS ORDERED: COLACE100 MG PO (08:50)
[2017-04-22 09:10] VITALS: BP 112/70
== END 2017-04-22 09:11 | disposition home or self-care (01) ==
LOC: EME 07:49
DX: K59.00 Constipation, unspecified (principal); Z87.19 Personal history of other diseases of the digestive system; F17.200 Nicotine dependence, unspecified, uncomplicated; Z88.0 Allergy status to penicillin; Z88.8 Allergy status to other drugs, medicaments and biological substances
CPT/HCPCS: 74018; 99281; 99284

== ENCOUNTER 2017-05-08 17:10 | Emergency (ER) | payer OTHER ==
[~2017-05-08] VITALS: Ht 160 cm; Wt 93.2 kg
[~2017-05-08 17:10] MED LIST changes: +COLACE100 MG PO
[2017-05-08] MEDS ORDERED: FIORICET 50-301 EAC1 PO (19:29)
[2017-05-08] MEDS ORDERED: REGLAN10 MG PO (19:29)
[2017-05-08 19:59] VITALS: BP 115/88
== END 2017-05-08 20:00 | disposition home or self-care (01) ==
LOC: EME 17:10
DX: R51 Headache (principal); F17.200 Nicotine dependence, unspecified, uncomplicated; Z87.11 Personal history of peptic ulcer disease; Z88.0 Allergy status to penicillin; Z88.8 Allergy status to other drugs, medicaments and biological substances; Z90.721 Acquired absence of ovaries, unilateral
CPT/HCPCS: 99281; 99284; J8540

== ENCOUNTER 2017-05-10 08:16 | Emergency (ER) | payer OTHER ==
[~2017-05-10] VITALS: Ht 160 cm; Wt 92.6 kg
[~2017-05-10 08:16] MED LIST changes: +FIORICET 50-301 EAC1 PO; +REGLAN10 MG PO
[2017-05-10 08:52] LABS: HEMATOCRIT 41.6 % (36.0-46.0); HEMOGLOBIN 14.1 G/DL (11.9-15.5); MCH 30.1 PG (29.0-34.0); MCHC 33.9 G/DL (30.0-36.0); MCV 88.9 FL (83-99); PLATELET COUNT 241 K/uL (156-360); RBC DIS.WIDTH-CV 13.9 % (11.8-14.6); RED BLOOD COUNT 4.68 M/uL (3.80-5.20); WHITE BLOOD COUNT 7.4 K/uL (4.1-10.2)
[2017-05-10 09:08] LABS: CHLORIDE 104 mEq/L (99-109); POTASSIUM 4.1 mEq/L (3.7-5.4); SODIUM 137 mEq/L (136-147)
[2017-05-10 09:10] LABS: GLUCOSE 103 mg/dL (70-99)
[2017-05-10 09:14] LABS: CREATININE 0.7 mg/dL (0.6-1.3); GFR ESTIMATE (CALCULATED) > 59 mL/min/
[2017-05-10 09:15] LABS: UREA NITROGEN (BUN) 9 mg/dL (9-23)
[2017-05-10 09:23] LABS: QUANTITATIVE HCG < 4.0 MIU/ML
[2017-05-10] MEDS ORDERED: FIORICET 50-301 EAC1 PO (09:23)
[2017-05-10 09:52] VITALS: BP 125/79
== END 2017-05-10 09:53 | disposition home or self-care (01) ==
LOC: EME 08:16
PROVIDERS: Nurse Practitioner Family
DX: R51 Headache (principal); F17.200 Nicotine dependence, unspecified, uncomplicated; Z87.19 Personal history of other diseases of the digestive system; Z88.0 Allergy status to penicillin; Z88.8 Allergy status to other drugs, medicaments and biological substances
CPT/HCPCS: 70450; 80048; 84702; 85027; 99281; 99285

== ENCOUNTER 2017-05-23 16:30 | Emergency (ER) | payer OTHER ==
[~2017-05-23] VITALS: Ht 160 cm; Wt 92.0 kg
[2017-05-23 17:01] LABS: HEMOGLOBIN 13.9 G/DL (11.9-15.5); MCH 30.6 PG (29.0-34.0); MCHC 34.8 G/DL (30.0-36.0); MCV 88.1 FL (83-99); PLATELET COUNT 224 K/uL (156-360); RBC DIS.WIDTH-CV 13.7 % (11.8-14.6); RBC DIS.WIDTH-SD 44.5 % (39-53); RED BLOOD COUNT 4.54 M/uL (3.80-5.20); WHITE BLOOD COUNT 11.4 K/uL (4.1-10.2)
[2017-05-23 17:18] LABS: CHLORIDE 108 mEq/L (99-109); POTASSIUM 4.2 mEq/L (3.7-5.4); SODIUM 139 mEq/L (136-147)
[2017-05-23 17:20] LABS: GLUCOSE 101 mg/dL (70-99)
[2017-05-23 17:24] LABS: CREATININE 0.7 mg/dL (0.6-1.3); GFR ESTIMATE (CALCULATED) > 59 mL/min/
[2017-05-23 17:25] LABS: UREA NITROGEN (BUN) 8 mg/dL (9-23)
[2017-05-23 17:28] LABS: TROP-I INTERPRETATION NEGATIVE; TROPONIN-I < 0.01 ng/mL (0.0-0.30)
[2017-05-23] MEDS ORDERED: OMEPRAZOLE40 M1 PO (17:44)
[2017-05-23 17:55] VITALS: BP 120/79
[2017-05-23 17:56] LABS: QUANTITATIVE HCG < 4.0 MIU/ML
== END 2017-05-23 17:56 | disposition home or self-care (01) ==
LOC: EME 16:30
DX: K21.9 Gastro-esophageal reflux disease without esophagitis (principal); R07.9 Chest pain, unspecified; Z87.19 Personal history of other diseases of the digestive system; Z88.0 Allergy status to penicillin; F17.200 Nicotine dependence, unspecified, uncomplicated
CPT/HCPCS: 71046; 80048; 84484; 84702; 85027; 93005; 99281; 99284

== ENCOUNTER 2017-05-27 15:47 | Emergency (ER) | payer OTHER ==
[~2017-05-27] VITALS: Ht 160 cm; Wt 92.1 kg
[~2017-05-27 15:47] MED LIST changes: +OMEPRAZOLE40 M1 PO
[2017-05-27 16:52] LABS: APPEARANCE CLOUDY ((CLEAR)); BILIRUBIN NEGATIVE; BLOOD NEGATIVE; COLOR YELLOW ((YELLOW)); GLUCOSE (STRIP) NEGATIVE; KETONES NEGATIVE; LEUKOCYTES NEGATIVE; NITRITE NEGATIVE; PROTEIN (STRIP) NEGATIVE; SPECIFIC GRAVITY 1.023 (1.000-1.030)
[2017-05-27 16:54] LABS: HEMATOCRIT 39.5 % (36.0-46.0); HEMOGLOBIN 13.6 G/DL (11.9-15.5); MCH 30.4 PG (29.0-34.0); MCHC 34.4 G/DL (30.0-36.0); MCV 88.4 FL (83-99); PLATELET COUNT 221 K/uL (156-360); RBC DIS.WIDTH-CV 13.6 % (11.8-14.6); RBC DIS.WIDTH-SD 44.2 % (39-53); RED BLOOD COUNT 4.47 M/uL (3.80-5.20); WHITE BLOOD COUNT 10.3 K/uL (4.1-10.2)
[2017-05-27 17:02] LABS: ALBUMIN 3.9 g/dL (3.2-4.8); CHLORIDE 105 mEq/L (99-109); POTASSIUM 4.1 mEq/L (3.7-5.4); SODIUM 136 mEq/L (136-147)
[2017-05-27 17:05] LABS: GLUCOSE 79 mg/dL (70-99); TOTAL PROTEIN 7.5 g/dL (6.4-8.3)
[2017-05-27 17:07] LABS: TOTAL BILIRUBIN 0.2 mg/dL (0.0-1.0)
[2017-05-27 17:08] LABS: ALKALINE PHOSPHATASE 98 IU/L (3-129); CREATININE 0.8 mg/dL (0.6-1.3); GFR ESTIMATE (CALCULATED) > 59 mL/min/
[2017-05-27 17:09] LABS: UREA NITROGEN (BUN) 11 mg/dL (9-23)
[2017-05-27 17:10] LABS: AST (GOT) 16 IU/L (2-34)
[2017-05-27 17:11] LABS: ALT (GPT) 16 IU/L (3-49)
[2017-05-27 17:11] LABS: RED BLOOD CELLS 0-5 /HPF (0-5)
[2017-05-27 17:12] LABS: BACTERIA 3+ /HPF; EPITHELIAL CELLS 2+ /HPF; MUCUS 2+ /LPF; UCUL ADDED? YES; WHITE BLOOD CELLS NONE SEEN /HPF (0-5)
[2017-05-27 17:17] LABS: QUANTITATIVE HCG < 4.0 MIU/ML
[2017-05-27 17:42] LABS: LIPASE 21 U/L (1.0-51.0)
[2017-05-27 19:16] VITALS: BP 110/78
[2017-05-28] MEDS ORDERED: MOTRIN600 MG PO (20:32)
== END 2017-05-27 19:21 | disposition home or self-care (01) ==
LOC: EME 15:47
DX: R10.31 Right lower quadrant pain (principal); J06.9 Acute upper respiratory infection, unspecified; Z53.21 Procedure and treatment not carried out due to patient leaving prior to being seen by health care provider; F17.200 Nicotine dependence, unspecified, uncomplicated; Z87.19 Personal history of other diseases of the digestive system; Z90.79 Acquired absence of other genital organ(s); Z88.0 Allergy status to penicillin; Z88.8 Allergy status to other drugs, medicaments and biological substances
CPT/HCPCS: 80053; 81003; 83690; 84702; 85027; 87086; 99281; 99285

== ENCOUNTER 2017-05-28 18:11 | Emergency (ER) | payer OTHER ==
[~2017-05-28] VITALS: Ht 160 cm; Wt 92.4 kg
[2017-05-28 19:01] LABS: HEMOGLOBIN 13.9 G/DL (11.9-15.5); MCH 30.5 PG (29.0-34.0); MCHC 34.8 G/DL (30.0-36.0); MCV 87.9 FL (83-99); PLATELET COUNT 210 K/uL (156-360); RBC DIS.WIDTH-CV 13.7 % (11.8-14.6); RBC DIS.WIDTH-SD 44.2 % (39-53); RED BLOOD COUNT 4.55 M/uL (3.80-5.20); WHITE BLOOD COUNT 12.8 K/uL (4.1-10.2)
[2017-05-28 19:09] LABS: ALBUMIN 4.1 g/dL (3.2-4.8); CHLORIDE 105 mEq/L (99-109); POTASSIUM 3.7 mEq/L (3.7-5.4); SODIUM 137 mEq/L (136-147)
[2017-05-28 19:11] LABS: GLUCOSE 94 mg/dL (70-99)
[2017-05-28 19:12] LABS: TOTAL PROTEIN 7.8 g/dL (6.4-8.3)
[2017-05-28 19:15] LABS: ALKALINE PHOSPHATASE 102 IU/L (3-129); CREATININE 0.7 mg/dL (0.6-1.3); GFR ESTIMATE (CALCULATED) > 59 mL/min/
[2017-05-28 19:16] LABS: UREA NITROGEN (BUN) 8 mg/dL (9-23)
[2017-05-28 19:17] LABS: AST (GOT) 17 IU/L (2-34)
[2017-05-28 19:18] LABS: ALT (GPT) 16 IU/L (3-49)
[2017-05-28 19:19] LABS: LIPASE 18 U/L (1.0-51.0)
[2017-05-28 19:22] LABS: TOTAL BILIRUBIN 0.3 mg/dL (0.0-1.0)
[2017-05-28 19:24] LABS: QUANTITATIVE HCG < 4.0 MIU/ML
[2017-05-28 19:43] LABS: APPEARANCE CLEAR ((CLEAR)); BILIRUBIN NEGATIVE; BLOOD NEGATIVE; COLOR STRAW ((YELLOW)); GLUCOSE (STRIP) NEGATIVE; KETONES 5; LEUKOCYTES NEGATIVE; NITRITE NEGATIVE; PROTEIN (STRIP) NEGATIVE; SPECIFIC GRAVITY 1.008 (1.000-1.030); UCUL ADDED? NO; UROBILINOGEN 0.2 MG/DL (0.2-1.0)
[2017-05-28] MEDS ORDERED: MOTRIN600 MG PO (20:32)
[2017-05-28 20:49] VITALS: BP 128/94
== END 2017-05-28 20:50 | disposition home or self-care (01) ==
LOC: EME 18:11
PROVIDERS: Physician Assistant
DX: N83.201 Unspecified ovarian cyst, right side (principal); F41.9 Anxiety disorder, unspecified; F17.200 Nicotine dependence, unspecified, uncomplicated; Z87.19 Personal history of other diseases of the digestive system; Z88.0 Allergy status to penicillin; Z88.8 Allergy status to other drugs, medicaments and biological substances
CPT/HCPCS: 74176; 80053; 81003; 83690; 84702; 85027; 99281; 99283

== ENCOUNTER 2017-06-03 17:44 | Emergency (ER) | payer OTHER ==
[~2017-06-03] VITALS: Ht 160 cm; Wt 92.4 kg
[2017-06-03 18:40] LABS: HEMOGLOBIN 13.8 G/DL (11.9-15.5); MCH 29.9 PG (29.0-34.0); MCHC 33.7 G/DL (30.0-36.0); MCV 88.9 FL (83-99); PLATELET COUNT 214 K/uL (156-360); RBC DIS.WIDTH-CV 13.7 % (11.8-14.6); RBC DIS.WIDTH-SD 45.2 % (39-53); RED BLOOD COUNT 4.61 M/uL (3.80-5.20); WHITE BLOOD COUNT 9.9 K/uL (4.1-10.2)
[2017-06-03 19:08] LABS: CHLORIDE 105 MEQ/L (99-109); SODIUM 137 MEQ/L (136-147)
[2017-06-03 19:14] LABS: CREATININE 0.7 MG/DL (0.6-1.3); GFR ESTIMATE (CALCULATED) > 59 mL/min/; GLUCOSE 96 mg/dL (70-99); UREA NITROGEN (BUN) 17 mg/dL (9-23)
[2017-06-03 19:17] LABS: TROP-I INTERPRETATION NEGATIVE; TROPONIN-I < 0.01 ng/mL (0.0-0.30)
[2017-06-03] MEDS ORDERED: PRILOSEC20 MG PO (19:53)
[2017-06-03 20:41] VITALS: BP 120/79
== END 2017-06-03 20:42 | disposition home or self-care (01) ==
LOC: EME 17:44
DX: K27.9 Peptic ulcer, site unspecified, unspecified as acute or chronic, without hemorrhage or perforation (principal); R07.89 Other chest pain; K21.9 Gastro-esophageal reflux disease without esophagitis; F41.9 Anxiety disorder, unspecified; F17.200 Nicotine dependence, unspecified, uncomplicated; Z87.19 Personal history of other diseases of the digestive system; Z90.79 Acquired absence of other genital organ(s); Z88.0 Allergy status to penicillin; Z88.8 Allergy status to other drugs, medicaments and biological substances
CPT/HCPCS: 71046; 80048; 84484; 85027; 93005; 99281; 99284

== ENCOUNTER 2017-07-05 09:04 | Emergency (ER) | payer OTHER ==
[~2017-07-05] VITALS: Ht 160 cm; Wt 90.5 kg
[~2017-07-05 09:04] MED LIST changes: +PRILOSEC20 MG PO
[2017-07-05 09:15] VITALS: BP 103/81
== END 2017-07-05 10:53 | disposition left against medical advice (07) ==
LOC: EME 09:04
DX: R07.9 Chest pain, unspecified (principal); H53.8 Other visual disturbances; Z53.21 Procedure and treatment not carried out due to patient leaving prior to being seen by health care provider
CPT/HCPCS: 93005

== ENCOUNTER 2017-07-10 19:55 | Emergency (ER) | payer OTHER ==
[~2017-07-10] VITALS: Ht 160 cm; Wt 90.4 kg
[2017-07-10 20:28] LABS: HEMATOCRIT 38.8 % (36.0-46.0); HEMOGLOBIN 13.4 G/DL (11.9-15.5); MCH 30.4 PG (29.0-34.0); MCHC 34.5 G/DL (30.0-36.0); PLATELET COUNT 226 K/uL (156-360); RBC DIS.WIDTH-CV 13.5 % (11.8-14.6); RBC DIS.WIDTH-SD 43.6 % (39-53); RED BLOOD COUNT 4.41 M/uL (3.80-5.20); WHITE BLOOD COUNT 11.4 K/uL (4.1-10.2)
[2017-07-10 20:35] LABS: CHLORIDE 107 mEq/L (99-109); SODIUM 138 mEq/L (136-147)
[2017-07-10 20:37] LABS: GLUCOSE 99 mg/dL (70-99)
[2017-07-10 20:41] LABS: CREATININE 0.8 mg/dL (0.6-1.3); GFR ESTIMATE (CALCULATED) > 59 mL/min/
[2017-07-10 20:42] LABS: UREA NITROGEN (BUN) 12 mg/dL (9-23)
[2017-07-10 20:47] LABS: TROP-I INTERPRETATION NEGATIVE; TROPONIN-I 0.02 ng/mL (0.0-0.30)
[2017-07-10] MEDS ORDERED: VENTOLIN HFA18 GM IH (21:36)
[2017-07-10 21:46] VITALS: BP 123/79
[2017-07-11] MEDS ORDERED: ATARAX,VISTARIL50 MG PO (10:33)
== END 2017-07-10 21:47 | disposition home or self-care (01) ==
LOC: EME 19:55
DX: R07.89 Other chest pain (principal); R06.02 Shortness of breath; F17.210 Nicotine dependence, cigarettes, uncomplicated; F41.9 Anxiety disorder, unspecified; Z88.0 Allergy status to penicillin; Z87.19 Personal history of other diseases of the digestive system
CPT/HCPCS: 71046; 80048; 84484; 85027; 85379; 93005; 94640; 99281; 99284

== ENCOUNTER 2017-07-11 08:53 | Emergency (ER) | payer OTHER ==
[~2017-07-11] VITALS: Ht 160 cm; Wt 90.2 kg
[~2017-07-11 08:53] MED LIST changes: +VENTOLIN HFA18 GM IH
[2017-07-11 10:05] LABS: APPEARANCE SL.HAZY ((CLEAR)); BILIRUBIN NEGATIVE; BLOOD NEGATIVE; COLOR YELLOW ((YELLOW)); GLUCOSE (STRIP) NEGATIVE; KETONES NEGATIVE; LEUKOCYTES TRACE; NITRITE NEGATIVE; PROTEIN (STRIP) NEGATIVE; SPECIFIC GRAVITY 1.014 (1.000-1.030)
[2017-07-11 10:08] LABS: BACTERIA RARE /HPF; EPITHELIAL CELLS 2+ /HPF; MUCUS TRACE /LPF; RED BLOOD CELLS 0-5 /HPF (0-5); WHITE BLOOD CELLS 0-5 /HPF (0-5)
[2017-07-11] MEDS ORDERED: ATARAX,VISTARIL50 MG PO (10:33)
[2017-07-11 10:53] VITALS: BP 107/61
== END 2017-07-11 11:00 | disposition home or self-care (01) ==
LOC: EME 08:53
PROVIDERS: Nurse Practitioner Family
DX: F41.9 Anxiety disorder, unspecified (principal); R07.9 Chest pain, unspecified; R06.00 Dyspnea, unspecified; F17.200 Nicotine dependence, unspecified, uncomplicated; Z87.19 Personal history of other diseases of the digestive system; Z88.0 Allergy status to penicillin; Z88.8 Allergy status to other drugs, medicaments and biological substances
CPT/HCPCS: 71275; 81003; 93005; 99281; 99285; J1200; J2405; J7030

== ENCOUNTER 2017-07-30 16:33 | Emergency (ER) | payer OTHER ==
[~2017-07-30] VITALS: Ht 160 cm; Wt 90.4 kg
[2017-07-30 18:18] VITALS: BP 00/00
== END 2017-07-30 18:18 | disposition home or self-care (01) ==
LOC: EME 16:33
DX: R20.0 Anesthesia of skin (principal); F17.200 Nicotine dependence, unspecified, uncomplicated
CPT/HCPCS: 93971; 99281; 99283

== ENCOUNTER 2017-08-10 08:25 | Emergency (ER) | payer OTHER ==
[~2017-08-10] VITALS: Ht 160 cm; Wt 90.0 kg
[2017-08-10] MEDS ORDERED: OMEPRAZOLE40 M1 PO (10:33)
[2017-08-10 11:11] VITALS: BP 107/80
== END 2017-08-10 11:13 | disposition home or self-care (01) ==
LOC: EME 08:25
DX: J02.9 Acute pharyngitis, unspecified (principal); K21.9 Gastro-esophageal reflux disease without esophagitis; F17.200 Nicotine dependence, unspecified, uncomplicated; F41.9 Anxiety disorder, unspecified; Z87.11 Personal history of peptic ulcer disease; Z90.79 Acquired absence of other genital organ(s); Z88.0 Allergy status to penicillin; Z88.8 Allergy status to other drugs, medicaments and biological substances
CPT/HCPCS: 70360; 87081; 87651 90; 99281; 99284

== ENCOUNTER 2017-08-25 15:18 | Emergency (ER) | payer OTHER ==
[~2017-08-25] VITALS: Ht 160 cm; Wt 91.4 kg
[2017-08-25 15:25] VITALS: BP 136/80
[2017-08-25 15:59] LABS: HEMATOCRIT 42.2 % (36.0-46.0); HEMOGLOBIN 14.2 G/DL (11.9-15.5); MCH 30.1 PG (29.0-34.0); MCHC 33.6 G/DL (30.0-36.0); MCV 89.4 FL (83-99); PLATELET COUNT 256 K/uL (156-360); RBC DIS.WIDTH-CV 13.9 % (11.8-14.6); RBC DIS.WIDTH-SD 45.4 % (39-53); RED BLOOD COUNT 4.72 M/uL (3.80-5.20); WHITE BLOOD COUNT 9.8 K/uL (4.1-10.2)
[2017-08-25 16:06] LABS: CHLORIDE 108 mEq/L (99-109); POTASSIUM 4.1 mEq/L (3.7-5.4); SODIUM 140 mEq/L (136-147)
[2017-08-25 16:08] LABS: GLUCOSE 102 mg/dL (70-99)
[2017-08-25 16:11] LABS: CREATININE 0.8 mg/dL (0.6-1.3); GFR ESTIMATE (CALCULATED) > 59 mL/min/
[2017-08-25 16:12] LABS: UREA NITROGEN (BUN) 11 mg/dL (9-23)
[2017-08-25 16:20] LABS: TROP-I INTERPRETATION NEGATIVE; TROPONIN-I < 0.01 ng/mL (0.0-0.30)
== END 2017-08-25 17:45 | disposition left against medical advice (07) ==
LOC: EME 15:18
DX: R07.9 Chest pain, unspecified (principal); R61 Generalized hyperhidrosis; Z53.21 Procedure and treatment not carried out due to patient leaving prior to being seen by health care provider
CPT/HCPCS: 71046; 80048; 84484; 85027; 93005

== ENCOUNTER 2017-08-26 06:25 | Emergency (ER) | payer OTHER ==
[~2017-08-26] VITALS: Ht 160 cm; Wt 90.7 kg
[2017-08-26 07:05] LABS: HEMATOCRIT 40.5 % (36.0-46.0); HEMOGLOBIN 13.8 G/DL (11.9-15.5); MCH 30.4 PG (29.0-34.0); MCHC 34.1 G/DL (30.0-36.0); MCV 89.2 FL (83-99); PLATELET COUNT 240 K/uL (156-360); RBC DIS.WIDTH-SD 45.4 % (39-53); RED BLOOD COUNT 4.54 M/uL (3.80-5.20); WHITE BLOOD COUNT 7.9 K/uL (4.1-10.2)
[2017-08-26 07:54] LABS: CHLORIDE 108 mEq/L (99-109); SODIUM 139 mEq/L (136-147)
[2017-08-26 07:56] LABS: GLUCOSE 95 mg/dL (70-99)
[2017-08-26 08:00] LABS: CREATININE 0.8 mg/dL (0.6-1.3); GFR ESTIMATE (CALCULATED) > 59 mL/min/
[2017-08-26 08:01] LABS: UREA NITROGEN (BUN) 10 mg/dL (9-23)
[2017-08-26 08:03] LABS: TROP-I INTERPRETATION NEGATIVE; TROPONIN-I < 0.01 ng/mL (0.0-0.30)
[2017-08-26 08:26] VITALS: BP 110/74
== END 2017-08-26 08:28 | disposition home or self-care (01) ==
LOC: EME 06:25
DX: R07.89 Other chest pain (principal); F41.9 Anxiety disorder, unspecified; R53.1 Weakness; R61 Generalized hyperhidrosis; F17.200 Nicotine dependence, unspecified, uncomplicated
CPT/HCPCS: 80048; 84484; 85027; 93005; 99281; 99284

== ENCOUNTER 2017-09-21 07:45 | Emergency (ER) | payer OTHER ==
[~2017-09-21] VITALS: Ht 160 cm; Wt 91.4 kg
[2017-09-21 08:34] LABS: APPEARANCE CLEAR ((CLEAR)); BILIRUBIN NEGATIVE; BLOOD SMALL; COLOR YELLOW ((YELLOW)); GLUCOSE (STRIP) NEGATIVE; KETONES 5; LEUKOCYTES NEGATIVE; NITRITE NEGATIVE; PROTEIN (STRIP) 30; SPECIFIC GRAVITY 1.024 (1.000-1.030)
[2017-09-21 08:37] LABS: HEMATOCRIT 39.9 % (36.0-46.0); HEMOGLOBIN 13.6 G/DL (11.9-15.5); MCH 30.3 PG (29.0-34.0); MCHC 34.1 G/DL (30.0-36.0); MCV 88.9 FL (83-99); PLATELET COUNT 225 K/uL (156-360); RBC DIS.WIDTH-CV 13.6 % (11.8-14.6); RBC DIS.WIDTH-SD 44.7 % (39-53); RED BLOOD COUNT 4.49 M/uL (3.80-5.20); WHITE BLOOD COUNT 8.8 K/uL (4.1-10.2)
[2017-09-21 08:49] LABS: BACTERIA RARE /HPF; EPITHELIAL CELLS 1+ /HPF; MUCUS TRACE /LPF; RED BLOOD CELLS 0-5 /HPF (0-5); WHITE BLOOD CELLS 0-5 /HPF (0-5)
[2017-09-21 08:58] LABS: CHLORIDE 105 mEq/L (99-109); POTASSIUM 3.9 mEq/L (3.7-5.4); SODIUM 138 mEq/L (136-147)
[2017-09-21 09:01] LABS: GLUCOSE 90 mg/dL (70-99); TOTAL PROTEIN 8.1 g/dL (6.4-8.3)
[2017-09-21 09:03] LABS: TOTAL BILIRUBIN 0.4 mg/dL (0.0-1.0)
[2017-09-21 09:04] LABS: ALKALINE PHOSPHATASE 95 IU/L (3-129); CREATININE 0.8 mg/dL (0.6-1.3); GFR ESTIMATE (CALCULATED) > 59 mL/min/
[2017-09-21 09:06] LABS: AST (GOT) 14 IU/L (2-34); UREA NITROGEN (BUN) 8 mg/dL (9-23)
[2017-09-21 09:07] LABS: ALT (GPT) 11 IU/L (3-49)
[2017-09-21 09:08] LABS: LIPASE 27 U/L (1.0-51.0)
[2017-09-21 09:16] LABS: QUANTITATIVE HCG < 4.0 MIU/ML
[2017-09-21 09:30] VITALS: BP 115/78
== END 2017-09-21 09:39 | disposition home or self-care (01) ==
LOC: EME 07:45
PROVIDERS: Nurse Practitioner Family
DX: R10.9 Unspecified abdominal pain (principal); K59.00 Constipation, unspecified; R11.2 Nausea with vomiting, unspecified; M54.9 Dorsalgia, unspecified; Z87.19 Personal history of other diseases of the digestive system; Z88.0 Allergy status to penicillin; F17.200 Nicotine dependence, unspecified, uncomplicated
CPT/HCPCS: 74018; 80053; 81003; 83690; 84702; 85027; 99281; 99283